=== PATIENT | female | born 1995 | race Caucasian/White ===

== ENCOUNTER 2019-02-22 19:09 | Emergency (ER) | payer SELFPAY ==
[2019-02-22] VITALS (9 sets, daily range): BP systolic 96–105; BP diastolic 46–60; PULSE 80–92; RESP 16–24; TEMP 36.9; O2SAT 92–100
--- NOTE | 2019-02-22 19:14 | ED.GENADUL_ITS ---
Discharge Plan Disposition Patient Disposition: HOME Condition: Improving Discharge Details Chief Complaint: AMS/LOC Clinical Impression: Opiate overdose Primary Care Provider: Sharyn Gunderson V ED Provider: Edgar Lim Home Meds and New Rx's Prescriptions: No Action No Known Home Meds RF: 0 Discharge Instructions Additional Instructions: Please avoid illegal narcotics. You are medically stable for discharge from the emergency department. Rest this evening, frequent sips of fluids to maintain hydration Discharge Data Discharge Date/Time-TO BE ENTERED AT DEPARTURE: 02/22/19 21:36 Medical Decision Making <Robles Lauren MD - Last Filed: 02/23/19 09:27> 23-year-old female status post opiate overdose treated with naloxone prehospital he no acute distress in the emergency department. Will monitor for re-sedation patient refusing recovery services at this time. 8:10 PM patient without respiratory depression but decreased responsiveness responsive to mild noxious stimuli primary secondary survey repeated no evidence of trauma. Will check blood glucose empiric naloxone and continue to monitor in the emergency department. Plan discussed with oncoming attending for signout. <Edgar Lim MD - Last Filed: 02/22/19 21:39> Patient observed to further approximately hour and a half with improvement and became clinically more sober and requesting discharge. Admonished not to abuse illegal drugs. She is stable and improved, appropriate for discharge. At the time of discharge, patient refused her discharge paperwork HPI <Robles Lauren MD - Last Filed: 02/23/19 09:27> 23-year-old female brought in by EMS status post suspected heroin overdose patient admits to use to smoking heroin this evening then walking out of a [employer] potty collapsed at a public event nearby. Responding police administered 3 4 mg intranasal naloxone doses patient awoke approximately a minute later. In the emergency department patient has no complaints no respiratory distress no shortness of breath no chest pain no nausea vomiting diarrhea.patient states that she relapsed she last used any opiates 3 months ago but is not interested in recovery resources at this time. General Date/Time Provider Initiated Documentation: 02/22/19 19:11 . Related Data Home Medications Medication Instructions Recorded Confirmed Unknown [No Known Home Meds] 02/17/18 02/17/18 Allergies Allergy/AdvReac Type Severity Reaction Status Date / Time amoxicillin Allergy Intermediate Skin Rash Verified 02/17/18 01:36 Penicillins Allergy Intermediate Skin Rash Verified 02/17/18 01:36 General Stated Complaint: AMS/LOC JORDAN: 2 <Edgar Lim MD - Last Filed: 02/22/19 21:39> 23-year-old female brought in by EMS status post suspected heroin overdose patient admits to use to smoking heroin this evening then walking out of a [employer] potty collapsed at a public event nearby. Responding police administered 3 4 mg intranasal naloxone doses patient awoke approximately a minute later. In the emergency department patient has no complaints no respiratory distress no shortness of breath no chest pain no nausea vomiting diarrhea.patient states that she relapsed she last used any opiates 3 months ago but is not interested in recovery resources at this time. Review of Systems <Robles Lauren MD - Last Filed: 02/23/19 09:27> Review of Systems All systems reviewed & are unremarkable except as noted in HPI and below PFSH <Robles Lauren MD - Last Filed: 02/23/19 09:27> Social History Smoking/Tobacco Use Status: Current every day Tobacco Type: cigarettes Alcohol Intake: current Drug use: Binges Substance use type: heroin Details: Patient states I relapsed. Do you feel safe in your relationship?: No Exam <Robles Lauren MD - Last Filed: 02/23/19 09:27> Narrative Exam Narrative: Pulse oximetry reviewed by me and is normal [] Constitutional: Pt is in no acute distress. he is well appearing. he oriented to person, place, and time. Eyes: conjunctivae are normal. Pupils are equal, round, and reactive to light. No scleral icterus. extraocular muscles are intact Ears/Nose/Mouth/Throat: mucus membranes are moist. Musculoskeletal: neck is supple. normal range of motion in all extremities. Cardiovascular: Normal rate and rhythm. No lower extremity edema [RRR] Respiratory: effort is normal . pt exhibits no stridor or respiratory distress. [L CTA] GastrointestinaI: abdomen soft, +BS, nontender, -rebound, -guarding. Neurological: alert and oriented to person, place, and time. he has normal strength, no tremor. Skin: Skin is warm and dry. he is not diaphoretic. Distal perfusion in tact, wa rm extremities, cap refill ? 2 seconds. Hem/Lymph/Imm: No cervical LAD, no goiter, no conjunctival pallor Psych: normal mood and affect. behavior is normal Triage and nurse notes reviewed.[] Course <Robles Lauren MD - Last Filed: 02/23/19 09:27> Vital Signs Temperature 36.9 C 02/22/19 19:04 Pulse 91 H 02/22/19 19:04 Respiratory Rate 18 02/22/19 19:04 Blood Pressure 103/60 02/22/19 19:04 Pulse Oximetry 97 02/22/19 19:04 Temperature 36.9 C 02/22/19 19:04 Temperature Source Skin 02/22/19 19:04 Pulse 91 H 02/22/19 19:04 Respiratory Rate 18 02/22/19 19:04 Respiratory Effort 02/22/19 19:09 Blood Pressure 103/60 02/22/19 19:04 Pulse Oximetry 97 02/22/19 19:04 Pain Level 0 02/22/19 19:04 Sign Out <Robles Lauren MD - Last Filed: 02/23/19 09:27> Sign Out Data: Sign Out Comment: Patient post overdose opiates re-sedated no apnea signout monitor Last updated by Robles Lauren MD at 02/22/19 20:11
== END 2019-02-22 21:36 | disposition home or self-care (01) ==
PROVIDERS: Emergency Provider Emergency Medicine; PCP Family Medicine
DX: T40.601A Poisoning by unspecified narcotics, accidental (unintentional), initial encounter (principal); R40.20 Unspecified coma
CPT/HCPCS: 36416; 82962; 96372; 99284; 99283; J2310

== ENCOUNTER 2019-08-31 15:22 | Emergency (ER) | payer MEDICAID, SELFPAY ==
[2019-08-31 15:25] VITALS: BP 112/66; PULSE 89; RESP 16; TEMP 36.4; O2SAT 95
--- NOTE | 2019-08-31 15:31 | ED.GENADUL_ITS ---
Discharge Plan Disposition Patient Disposition: HOME Condition: Stable Discharge Details Chief Complaint: RespSymp Clinical Impression: Hand, foot and mouth disease Primary Care Provider: Sharyn Gunderson V ED Provider: Gita Ortega Home Meds and New Rx's Prescriptions: No Action No Known Home Meds RF: 0 Discharge Instructions Instructions: Hand, Foot, and Mouth Disease (ED) Additional Instructions: Alternate Tylenol and Motrin as needed and directed for pain. Use the Magic mouthwash 10 mL by mouth every 6 hours as needed. You can swish and spit and occasionally swallow a small amount. Apply warm compresses to the lesions on your face. You can also apply topical antibiotic ointment as needed. Avoid heavy lotions or drying soaps. Follow a diet of cool soft liquids and foods over the next few days while having mouth pain. Follow-up with your primary care doctor within the next week for reevaluation. Return to the emergency department if you develop any worsening or concerning symptoms. Stand Alone Forms: Work Release Discharge Data Discharge Physician: Gita Ortega Medical Decision Making 23-year-old female presents with painful lesions to her mouth, palms of hands and soles of feet for the past few days. Patient denies any known sick contacts. She states she is concerned about rnls-bqjc-eds-mouth disease. Faintly erythematous tender 1 to 2 mm hyperpigmented macules and papules noted to buccal mucosa and inside lips. Tongue is tender to touch with scattered indented scaly lesions, not obviously consistent with ulcers or papules. No evidence of thrush. There are faintly erythematous 1 mm papules noted to palms and soles. No evidence of abscesses. Lungs clear. Patient appears nontoxic. Presentation could be consistent with mmzl-qbyh-pfj-mouth disease. Patient was advised to apply warm compresses to chin. She was given Magic mouthwash and admitted to significant relief of pain. She was given Tylenol for pain and was advised to alternate Tylenol Motrin as needed and directed. She was given a work note for today. She was advised to follow-up with her primary care doctor for reevaluation and to return here anytime if worse. HPI General Mode of arrival: ambulatory . Date/Time Provider Initiated Documentation: 08/31/19 15:22 . Limitations to Documentation: no limitations . Information obtained by: patient . HPI Narrative: Patient is a 23-year-old female w/ a h/o anxiety, depression, and narcotic drug abuse who presents to the ED w/ a c/o painful mouth, face, hand, and foot lesions for the past few days. Pt has been having difficulty eating due to pain. She denies any known sick contacts. She denies any new medications such as antibiotics, NSAIDs. She denies any fever, headache and cough, chest pain, shortness of breath or vomiting. Related Data Home Medications Medication Instructions Recorded Confirmed Unknown [No Known Home Meds] 02/17/18 05/21/19 Allergies Allergy/AdvReac Type Severity Reaction Status Date / Time amoxicillin Allergy Intermediate Skin Rash Verified 08/31/19 15:32 Penicillins Allergy Intermediate Skin Rash Verified 08/31/19 15:32 General Stated Complaint: RespSymp JORDAN: 4 Review of Systems All systems reviewed & are unremarkable except as noted in HPI and below Constitutional Constitutional: Reports as per HPI, Denies chills and Denies fever(s) Eyes Eyes: Denies blurry vision ENT Ears, Nose, Mouth, and Throat: Denies dizziness, Reports mouth lesions, Reports mouth pain, Denies sore throat and Denies throat swelling Cardiovascular Cardiovascular: Denies chest pain and Denies dyspnea Respiratory Respiratory: Denies cough and Denies dyspnea Gastrointestinal Gastrointestinal: Denies abdominal pain, Denies diarrhea and Denies vomiting Genitourinary Genitourinary: Denies hematuria and Denies dysuria Musculoskeletal Musculoskeletal: Denies back pain and Denies numbness Integumentary/Breasts Skin/Breast: Reports lesions and Reports rash Neurologic Neurologic: Denies dizziness, Denies focal weakness and Denies numbness Allergic/Immunologic Allergic/Immunologic: Denies throat swelling [facility] Medical History History of intravenous drug use in remission (Acute) Surgical History Appendectomy section (03/28/15) PCD for breech presentation. Apolonia Rodriguez 5lb7oz. formerly [facility] Social History Smoking/Tobacco Use Status: Current every day Tobacco Type: cigarettes Alcohol Intake: current Drug use: Binges Substance use type: heroin Details: Patient states I relapsed. Do you feel safe at home: Yes Do you feel safe in your relationship?: No History History 1 Para 1 Hx # Term Pregnancies Multiple births Hx # Pregnancies Ectopic pregnancies AB induced Hx Number of Living Children AB spontaneous Exam Const General: cooperative, healthy appearing and no acute distress HENMT Head: normal to inspection Ears: hearing grossly normal bilaterally, external ears normal and TM's normal bilaterally General nose exam: external nose normal Face and sinus: normal facial exam Mouth: moist mucous membranes and oral mucosa abnormal erythematous, edematous and ulceration (tender ) of the right buccal mucosa and of the sublingual area; no hematomas, no palatal petechiae, no white patches and no vesicles Throat: posterior oropharynx normal Eyes General: appearance normal, both eyes and all related structures Neck Neck: normal visual inspection, no lymphadenopathy, no meningeal signs, trachea midline, supple and No submandibular swelling Resp Effort & Inspection: normal respiratory effort and able to speak in complete sentences Auscultation: clear to auscultation bilaterally Cardio Rate: regular rate Rhythm: regular rhythm Skin Other: Minimal tiny pinpoint hyperpigmented papules palms of hands bilaterally and soles of feet. Mild bilateral palmar and plantar edema. No palmar or plantar erythema, ecchymoses. No vesicles or ulcers to palms or soles. There is a 2x4mm ulceration noted to dorsal aspect of distal phalange of R 4th digit. No signs of cellulitis. Distal pulses intact. No deformities noted. Multiple 2 mm papules, crusts and Coumadin was noted around mouth and chin. No obvious abscesses noted. No active bleeding or discharge. Neuro General: alert, awake and oriented x3 Motor: muscle tone normal throughout Extrem General: normal to inspection and full ROM Psych Appearance: grossly normal Affect: normal affect Course Vital Signs Vital signs: Vital Signs Temperature 97.5 F L 08/31/19 15:25 Pulse 89 08/31/19 15:25 Respiratory Rate 16 08/31/19 15:25 Blood Pressure 112/66 08/31/19 15:25 Pulse Oximetry 95 08/31/19 15:25 Temperature 97.5 F L 08/31/19 15:25 Temperature Source Temporal Artery Scan 08/31/19 15:25 Pulse 89 08/31/19 15:25 Respiratory Rate 16 08/31/19 15:25 Blood Pressure 112/66 08/31/19 15:25 Pulse Oximetry 95 08/31/19 15:25 Oxygen Delivery Method Room Air 08/31/19 15:25 Oxygen Flow Rate 0 08/31/19 15:25
[2019-08-31] MEDS: Acetaminophen 325 MG TAB 650 MG PO (15:52)
[2019-08-31] MEDS: Magic Mouthwash 119 ML BTL 10 ML PO (15:54)
== END 2019-08-31 16:00 | disposition home or self-care (01) ==
PROVIDERS: Emergency Provider Physician Assistant; PCP Family Medicine
DX: B08.4 Enteroviral vesicular stomatitis with exanthem (principal)
CPT/HCPCS: 99283

== ENCOUNTER 2019-12-25 08:23 | Outpatient (REF) | payer MEDICAID, SELFPAY ==
[2019-12-25 10:55] LABS: *AMPHETAMINES SCREEN URINE Negative (Negative); *BARBITURATES SCREEN URINE Negative (Negative); *BENZODIAZEPINES SCREEN URINE Negative (Negative); Cannabinoids THC Negative (Negative); Cocaine Screen,Urine Negative (Negative); METHADONE URINE SCREEN Negative (Negative); OPIATES URINE SCREEN POSITIVE (Negative)
[2019-12-25 10:56] LABS: Tricyclic Antidepressants Negative (Negative)
[2019-12-30 08:46] LABS: Buprenorphine 13.5 ng/mL; Norbuprenorphine 109.7 ng/mL
== END 2019-12-25 08:43 ==
LOC: LBN 08:23
PROVIDERS: PCP Family Medicine; Visit Provider Advanced Practice Midwife
DX: Z34.91 Encounter for supervision of normal pregnancy, unspecified, first trimester (principal)
CPT/HCPCS: 80307; 87086

== ENCOUNTER 2020-01-05 20:56 | Emergency (ER) | payer MEDICAID, SELFPAY ==
[2020-01-05 21:01] VITALS: BP 130/77; PULSE 115; RESP 18; TEMP 36.7; O2SAT 97
--- NOTE | 2020-01-05 21:07 | ED.GENADUL_ITS ---
Discharge Plan Disposition Patient Disposition: HOME Condition: Good Discharge Details Chief Complaint: Sorethroat Clinical Impression: Strep pharyngitis Primary Care Provider: Sharyn Gunderson V ED Provider: Kathy Blackmon Home Meds and New Rx's Prescriptions: New azithromycin 250 mg tablet 250 mg PO DAILY 4 Days Qty: 4 RF: 0 Continued prenat.vits,jonathan,[id number] Tablet 1 tab PO DAILY Qty: 30 RF: 12 buprenorphine-naloxone [Suboxone] 8-2 mg Film RF: 0 Discharge Instructions Instructions: Strep Throat (ED) Additional Instructions: Encourage water intake. And use Tylenol as needed for discomfort. Please take the azithromycin as prescribed. Your next dose is not due till tomorrow night. Even if symptoms improve, please take the entire course. Please contact [facility] to discuss your current illness and treatment. If you develop inability stay hydrated, difficulty breathing, shortness of breath, increased swelling or other new/worsening symptom please seek care urgently once again. Please change your toothbrush after 48 hours on antibiotics. Referrals: Sharyn Gunderson MD [Primary Care Provider] - Medical Decision Making Patient is a pleasant 24-year-old female presenting today with chief complaint of sore throat. She reports that her significant other is currently being treated for streptococcal pharyngitis. She reports that this morning she woke with a sore throat and has noted progressively worsening Course the day. She denies any fevers or chills. Has been able to hydrate well. Patient is currently 16 weeks gestation with second . She is being followed by [facility]. On exam, patient is resting comfortably. She is in no acute distress. She has mild erythema and swelling on bilateral tonsils but no swelling under the tongue, uvular deviation, evidence of peritonsillar abscess. She has no palpable lymphadenopathy. Lungs are clear. She does appear well-hydrated. Rapid strep testing is positive. Plan to treat patient with azithromycin as she is allergic to penicillin. Encourage water intake. Advised Tylenol as needed for discomfort. She will contact [facility] to discuss follow-up appointment. She is given strict return precautions. All of her questions and concerns were addressed she is agreement this plan. First dosing of azithromycin was given here HPI General Mode of arrival: ambulatory . Date/Time Provider Initiated Documentation: 01/05/20 21:06 . Limitations to Documentation: no limitations . Information obtained by: patient and RN notes reviewed . History of Present Illness 24 year old F presents to the emergency department with the chief complaint of sore throat, described as moderate, with intensity rated at 4. Quality is described as burning, and is localized to the mouth. Patient reports no radiation. Patient started experiencing this hour(s) and it has been constant. No relieving factors improve symptom(s), No exacerbating factors reported . Patient notes no other symptoms.; denies cough, fever/chills, loss of appetite, nausea/vomiting, rash and shortness of breath. Patient did receive the following treatments prior to arrival, none Related Data Home Medications Medication Instructions Recorded Confirmed prenat.vits,jonathan,[id number] 1 tab PO DAILY #30 tab 12/24/19 01/05/20 azithromycin 250 mg PO DAILY 4 Days #4 tab 01/05/20 buprenorphine-naloxone [Suboxone] film 01/05/20 Previous Rx's Medication Instructions Recorded prenat.vits,jonathan,[id number] 1 tab PO DAILY #30 tab 12/24/19 azithromycin 250 mg PO DAILY 4 Days #4 tab 01/05/20 Allergies Allergy/AdvReac Type Severity Reaction Status Date / Time amoxicillin Allergy Intermediate Skin Rash Verified 01/05/20 21:07 Penicillins Allergy Intermediate Skin Rash Verified 01/05/20 21:07 General Stated Complaint: Sorethroat JORDAN: 4 Review of Systems Constitutional Constitutional: Reports as per HPI and Denies headache(s) Eyes Eyes: Reports as per HPI, Denies eye discharge and Denies irritation ENT Ears, Nose, Mouth, and Throat: Reports as per HPI and Denies headache(s) Cardiovascular Cardiovascular: Reports as per HPI, Denies chest pain and Denies dyspnea Respiratory Respiratory: Reports as per HPI and Denies dyspnea Gastrointestinal Gastrointestinal: Reports as per HPI, Denies abdominal pain, Denies change in bowel habits, Denies nausea and Denies vomiting Integumentary/Breasts Skin/Breast: Reports as per HPI and Denies rash Neurologic Neurologic: Reports as per HPI and Denies headache(s) [facility] Medical History History of intravenous drug use in remission (Resolved) Opiate dependence, continuous (Acute) Tobacco dependence (Acute) Surgical History Appendectomy section (03/28/15) PCD for breech presentation. Apolonia Freitas. 5lb7oz. [facility] Social History Smoking/Tobacco Use Status: Current every day Tobacco Type: cigarettes Smoking packs per day: 1 Smoking cigarettes per day: 20.0 Alcohol Intake: current Drug use: Binges Substance use type: heroin Do you feel safe at home: Yes History History 1 Para 1 Hx # Term Pregnancies Multiple births Hx # Pregnancies Ectopic pregnancies AB induced Hx Number of Living Children AB spontaneous Past Pregnancies Del. Date GA/Weeks # Outcome Route Wgt Sex Labor Lgth Anesthes ia Location Prov Complic 03/28/15 37 No Successful 2.[address] Alvarez Delivery Date: 03/28/15 [place], Breech with SROM at 37 weeks, S[place], [place] Exam Const General: cooperative, healthy appearing, comfortable, no acute distress, well developed and well groomed Nutritional Appearance: average body habitus and well nourished Orientation: alert and awake HENMT Head: normal to inspection, normocephalic and atraumatic Ears: hearing grossly normal bilaterally, external ears normal and TM's normal bilaterally General nose exam: external nose normal and nares normal Face and sinus: normal facial exam, sinuses nontender and face symmetric Mouth: oral mucosae normal, lip normal, tongue normal, oropharynx normal, moist mucous membranes, no audible dysphonia, no trismus and No restricted motion Teeth and gingiva: dentition normal Throat: tonsils normal, uvula midline, abnormal tonsil bilaterally erythema and hypertrophy (mild); no exudates and no peritonsillar masses Eyes General: appearance normal, both eyes and all related structures Neck Neck: normal visual inspection, full ROM, no lymphadenopathy and no meningeal signs Resp Effort & Inspection: normal respiratory effort, able to speak in complete sentences and no respiratory distress Auscultation: clear to auscultation bilaterally, no rales, no rhonchi and no wheezes Cardio Rate: regular rate Rhythm: regular rhythm Heart Sounds: S1 normal and S2 normal Skin General skin exam: no rashes or lesions noted Neuro General: patient alert and patient awake Cognition: normal cognition Speech: speech normal Gait: normal gait Psych Appearance: grossly normal and well kempt Mental Status: mental status grossly normal Speech and Movement: speech and movement normal Course Vital Signs Vital signs: Vital Signs Temperature 36.7 C 01/05/20 21:01 Pulse 115 H 01/05/20 21:01 Respiratory Rate 18 01/05/20 21:01 Blood Pressure 130/77 01/05/20 21:01 Pulse Oximetry 97 01/05/20 21:01 Temperature 36.7 C 01/05/20 21:01 Temperature Source Skin 01/05/20 21:01 Pulse 115 H 01/05/20 21:01 Respiratory Rate 18 01/05/20 21:01 Blood Pressure 130/77 01/05/20 21:01 Blood Pressure Position Sitting 01/05/20 21:01 Pulse Oximetry 97 01/05/20 21:01 Oxygen Delivery Method Room Air 01/05/20 21:01 Oxygen Flow Rate 0 01/05/20 21:01 Pain Level 5 01/05/20 21:01
[2020-01-05] MEDS: Azithromycin 250 MG TAB 500 MG PO (21:45)
== END 2020-01-05 21:45 | disposition home or self-care (01) ==
PROVIDERS: Emergency Provider Physician Assistant; PCP Family Medicine
DX: J02.0 Streptococcal pharyngitis (principal); Z3A.16 16 weeks gestation of pregnancy; O99.332 Smoking (tobacco) complicating pregnancy, second trimester; F17.210 Nicotine dependence, cigarettes, uncomplicated
CPT/HCPCS: 99283

== ENCOUNTER 2020-01-20 01:17 | Outpatient (CLI) | payer MEDICAID, SELFPAY ==
--- NOTE | 2020-01-20 | DI.US_ITS ---
EXAM: US OB 2-3 TRIMESTER CLINICAL HISTORY: ,Z34.90 TECHNIQUE: Ultrasound performed using standard protocol. COMPARISON: [facility] OB ULTRASOUND from 03/26/2015 FINDINGS: Ob ultrasound was performed utilizing 2nd trimester protocol. There is a single fetus with bio metry consistent with gestational age of 19 weeks 4 days and an EDC of 06/11/2020. Placenta is pratibha l with no evidence of placenta previa. There is a normal quantity of amniotic fluid. anomaly screen is within normal limits as per the attached checklist. heart rate is 160 BPM. IMPRESSION: DATA REPOSITORY:
[2020-01-20 16:59] LABS: *AMPHETAMINES SCREEN URINE Negative (Negative); *BARBITURATES SCREEN URINE Negative (Negative); *BENZODIAZEPINES SCREEN URINE Negative (Negative); Cannabinoids THC Negative (Negative); Cocaine Screen,Urine POSITIVE (Negative); METHADONE URINE SCREEN Negative (Negative); OPIATES URINE SCREEN Negative (Negative)
[2020-01-20 17:05] LABS: Tricyclic Antidepressants Negative (Negative)
== END 2020-01-20 01:37 ==
PROVIDERS: PCP Family Medicine; Visit Provider Advanced Practice Midwife
DX: Z34.92 Encounter for supervision of normal pregnancy, unspecified, second trimester (principal); Z3A.19 19 weeks gestation of pregnancy
CPT/HCPCS: 80307; 76805

== ENCOUNTER 2020-01-21 01:09 | Outpatient (CLI) | payer MEDICAID, SELFPAY ==
[2020-01-21 15:18] LABS: Abs Immature Grans 0.02 k/cumm (0.0-0.09); Absolute Basophil Count 0.02 k/cumm (0.0-0.2); Absolute Eosinophil Count 0.08 k/cumm (0.0-0.7); Absolute Lymphocyte Count 1.39 k/cumm (1.2-3.4); Basophils % 0.2; Eosinophils % 0.7; HCT 29.2 % (36.0-46.0); HGB 9.6 g/dL (12.0-15.5); Immature Grans % 0.2 %; Lymphocytes % 12.9; Mean Corp. HGB Concentration 32.9 g/dL (32.0-36.0); Mean Corpuscular Hemoglobin 19.7 pg (27.0-33.0); Mean Platelet Volume 10.4 fL (8.0-11.0); Monocytes % 7.4; Neutrophils % 78.6; Platelet Count 342 x1000/uL (130-400); RBC 4.87 m/cumm (4.00-5.20); RBC Distribution Width 15.4 % (11.7-14.6); White Blood Cell Count 10.81 k/cumm (4.4-10.8)
[2020-01-21 15:56] LABS: Hypochromasia 1+; Microcytosis 2+
[2020-01-22 10:28] LABS: HIV-1/2 Ag & Ab Screen Negative (Negative)
[2020-01-22 10:29] LABS: Hepatitis C Ab w Rflx HCV PCR Reactive (Negative)
[2020-01-22 13:26] LABS: Chlamydia Result Negative (Negative); GC Result Negative (Negative)
[2020-01-22 14:09] LABS: Rubella IgG Ab (UVM) Positive (See Note); Varicella IgG Antibody Positive (See Note)
[2020-01-22 14:53] LABS: Syphilis Total Ab w/Reflex Nonreactive (Nonreactive)
[2020-01-22 16:26] LABS: Hepatitis B Surface Ag Positive (Negative)
[2020-01-26 10:58] LABS: Buprenorphine 90.5 ng/mL; Norbuprenorphine 340.5 ng/mL
[2020-01-26 15:51] LABS: HCV RNA Detection Quantitative See Comments IU/mL (Undetected)
[2020-01-27 17:43] LABS: Result Summary NEGATIVE; Specimen WB Whole Blood
== END 2020-01-21 01:29 ==
PROVIDERS: Advanced Practice Midwife; PCP Family Medicine; Visit Provider Advanced Practice Midwife
DX: Z34.91 Encounter for supervision of normal pregnancy, unspecified, first trimester (principal); Z11.59 Encounter for screening for other viral diseases; Z11.4 Encounter for screening for human immunodeficiency virus [HIV]; Z01.84 Encounter for antibody response examination; Z36.89 Encounter for other specified antenatal screening
CPT/HCPCS: 36415; 80307; 86787; 86803; 86850; 86900; 86901; 87340; 87389; 87491; 87591; 81220; 85025; 86762; 86780; 87522

== ENCOUNTER 2020-02-03 14:17 | Outpatient (REF) | payer MEDICAID, SELFPAY ==
[2020-02-03 15:25] LABS: HCT 30.5 % (36.0-46.0); HGB 9.8 g/dL (12.0-15.5); Mean Corp. HGB Concentration 32.1 g/dL (32.0-36.0); Mean Corpuscular Hemoglobin 19.4 pg (27.0-33.0); Mean Corpuscular Volume 60.5 fL (80-95); Mean Platelet Volume 10.6 fL (8.0-11.0); Platelet Count 383 x1000/uL (130-400); RBC 5.04 m/cumm (4.00-5.20); RBC Distribution Width 16.1 % (11.7-14.6); Reticulocyte 2.3 % (0.5-2.4); White Blood Cell Count 8.76 k/cumm (4.4-10.8)
[2020-02-03 15:33] LABS: Total Iron Binding Capacity 539 ug/dL (250-450)
[2020-02-03 15:38] LABS: ALT 65 U/L (14-59); AST 34 U/L (15-37); Albumin 3.4 g/dL (3.4-5.0); Alkaline Phosphatase 53 U/L (46-116); Bilirubin, Direct 0.12 mg/dL (0.00-0.20); Bilirubin, Total 0.4 mg/dL (0.2-1.0); Total Protein 6.9 g/dL (6.4-8.2)
[2020-02-03 15:47] LABS: Ferritin 29 ng/mL (8-252)
[2020-02-04 14:58] LABS: Transferrin 387 mg/dL (201-352)
[2020-02-04 15:38] LABS: HBc IgM Ab, S Negative (Negative); Hepatitis Be Antigen Negative (Negative)
[2020-02-04 15:53] LABS: HBe Antibody Negative (Negative)
[2020-02-05 22:47] LABS: GA used in risk estimate Scan estimate; IVF Pregnancy No; Initial or repeat testing Initial testing; Insulin dependent diabetes No; Maternal Weight 119 lbs; Maternal Weight 54 kg; Number of Fetuses 1; Prev Pregnancy w/NTD No; RECOMMENDED FOLLOW UP None.; Results Summary Normal risk
[2020-02-06 21:41] LABS: HBV DNA Detect/Quant, PCR Undetected IU/mL (Undetected)
== END 2020-02-03 14:37 ==
LOC: LBN 14:17
PROVIDERS: Obstetrics & Gynecology Gynecology; PCP Family Medicine; Visit Provider Advanced Practice Midwife
DX: Z34.91 Encounter for supervision of normal pregnancy, unspecified, first trimester (principal); Z36.89 Encounter for other specified antenatal screening; O98.411 Viral hepatitis complicating pregnancy, first trimester; B19.10 Unspecified viral hepatitis B without hepatic coma; D64.9 Anemia, unspecified
CPT/HCPCS: 80076; 85027; 87517; 82105; 82728; 83550; 84466; 85045; 86705; 86707; 87350

== ENCOUNTER 2020-02-17 17:39 | Emergency (ER) | payer MEDICAID, SELFPAY ==
[2020-02-17] VITALS (16 sets, daily range): BP systolic 95–109; BP diastolic 53–60; PULSE 73–89; RESP 8–20; TEMP 36.4; O2SAT 92–100
[2020-02-17 18:11] LABS: Abs Immature Grans 0.04 k/cumm (0.0-0.09); Absolute Eosinophil Count 0.05 k/cumm (0.0-0.7); Absolute Lymphocyte Count 1.27 k/cumm (1.2-3.4); Absolute Monocyte Count 0.68 k/cumm (0.11-0.7); Absolute Neutrophil Count 7.73 k/cumm (1.2-6.7); Eosinophils % 0.5; HGB 9.4 g/dL (12.0-15.5); Immature Grans % 0.4 %; Mean Corp. HGB Concentration 32.4 g/dL (32.0-36.0); Mean Corpuscular Hemoglobin 19.8 pg (27.0-33.0); Mean Corpuscular Volume 61.1 fL (80-95); Mean Platelet Volume 9.7 fL (8.0-11.0); Neutrophils % 79.1; Platelet Count 370 x1000/uL (130-400); RBC 4.75 m/cumm (4.00-5.20); RBC Distribution Width 15.7 % (11.7-14.6); White Blood Cell Count 9.77 k/cumm (4.4-10.8)
[2020-02-17] MEDS: Naloxone 0.4 MG/ML VIAL IVP (18:14)
[2020-02-17] MEDS: Normal Saline 1,000 ML 1000 ML IV (18:14)
[2020-02-17 18:24] LABS: ALT 94 U/L (14-59); AST 66 U/L (15-37); Albumin 3.2 g/dL (3.4-5.0); Alkaline Phosphatase 73 U/L (46-116); Anion Gap 10.2 mmol/L (3-11); BUN 7 mg/dL (7-18); Bilirubin, Total 0.6 mg/dL (0.2-1.0); CO2 27.8 mmol/L (21.0-32.0); CREATININE 0.59 mg/dL (0.55-1.02); Calcium 8.5 mg/dL (8.5-10.1); Chloride 101 mmol/L (98-107); Glucose 88 mg/dL (74-106); Potassium 3.2 mmol/L (3.5-5.1); Sodium 139 mmol/L (136-145); Total Protein 7.2 g/dL (6.4-8.2)
[2020-02-17 18:29] LABS: Diff Comment Diff Reviewed; Hypochromasia 1+
[2020-02-17 18:30] LABS: Basophilic Stippling 1+; Microcytosis 2+; Polychromasia Present
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
== END 2020-02-17 19:55 | disposition home or self-care (01) ==
PROVIDERS: Emergency Provider Physician Assistant; PCP Family Medicine
DX: T40.1X1A Poisoning by heroin, accidental (unintentional), initial encounter (principal); R40.0 Somnolence; Z3A.24 24 weeks gestation of pregnancy; O99.322 Drug use complicating pregnancy, second trimester; F11.220 Opioid dependence with intoxication, uncomplicated
CPT/HCPCS: 36415; 80053; 96361; 96374; 99284; 85025; J2310

== ENCOUNTER 2020-02-24 16:18 | Outpatient (REF) | payer MEDICAID, SELFPAY ==
[2020-02-24 19:48] LABS: *AMPHETAMINES SCREEN URINE Negative (Negative); *BARBITURATES SCREEN URINE Negative (Negative); *BENZODIAZEPINES SCREEN URINE Negative (Negative); Cannabinoids THC Negative (Negative); Cocaine Screen,Urine POSITIVE (Negative); METHADONE URINE SCREEN Negative (Negative); OPIATES URINE SCREEN Negative (Negative)
[2020-02-24 19:49] LABS: Tricyclic Antidepressants Negative (Negative)
[2020-03-01 02:41] LABS: Buprenorphine 292.5 ng/mL; Norbuprenorphine 716.9 ng/mL
== END 2020-02-24 16:38 ==
LOC: LBN 16:18
PROVIDERS: Advanced Practice Midwife; PCP Family Medicine; Visit Provider Advanced Practice Midwife
DX: Z34.92 Encounter for supervision of normal pregnancy, unspecified, second trimester (principal)
CPT/HCPCS: 80307

== ENCOUNTER 2020-03-09 01:16 | Outpatient (RCR) | payer MEDICAID, SELFPAY ==
[2020-03-02] MEDS: IRON SUCROSE COMPLEX 200 MG in Normal Saline 100 ML 440 MG IVPB (09:35)
[2020-03-02 09:36] LABS: HCT 29.4 % (36.0-46.0); HGB 9.5 g/dL (12.0-15.5)
[2020-03-02] MEDS: Normal Saline Flush 10 ML SYR IVP (09:36)
== END 2020-03-14 23:59 | disposition home or self-care (01) ==
LOC: INF 01:16
PROVIDERS: PCP Family Medicine; Visit Provider Advanced Practice Midwife
DX: D50.9 Iron deficiency anemia, unspecified (principal)
CPT/HCPCS: 36415; 96365; 85014; 85018; J1756

== ENCOUNTER 2020-03-16 16:34 | Outpatient (REF) | payer MEDICAID, SELFPAY ==
[2020-03-16 17:11] LABS: *AMPHETAMINES SCREEN URINE Negative (Negative); *BARBITURATES SCREEN URINE Negative (Negative); *BENZODIAZEPINES SCREEN URINE Negative (Negative); Cannabinoids THC Negative (Negative); Cocaine Screen,Urine POSITIVE (Negative); METHADONE URINE SCREEN Negative (Negative); OPIATES URINE SCREEN POSITIVE (Negative)
[2020-03-16 17:13] LABS: Tricyclic Antidepressants Negative (Negative)
[2020-03-23 13:11] LABS: Norbuprenorphine 591.6 ng/mL
== END 2020-03-16 16:54 ==
LOC: LBN 16:34
PROVIDERS: PCP Family Medicine; Visit Provider Advanced Practice Midwife
DX: Z34.92 Encounter for supervision of normal pregnancy, unspecified, second trimester (principal)
CPT/HCPCS: 80307

== ENCOUNTER 2020-03-26 19:08 | Outpatient (REF) | payer MEDICAID, SELFPAY ==
[2020-03-27 10:57] LABS: *AMPHETAMINES SCREEN URINE Negative (Negative); *BARBITURATES SCREEN URINE Negative (Negative); *BENZODIAZEPINES SCREEN URINE Negative (Negative); Cannabinoids THC Negative (Negative); Cocaine Screen,Urine Negative (Negative); METHADONE URINE SCREEN Negative (Negative); OPIATES URINE SCREEN Negative (Negative)
[2020-03-27 10:58] LABS: Tricyclic Antidepressants Negative (Negative)
[2020-04-03 06:39] LABS: Buprenorphine 246.9 ng/mL; Norbuprenorphine 1319.6 ng/mL
== END 2020-03-26 19:28 ==
LOC: LBN 19:08
PROVIDERS: PCP Family Medicine; Visit Provider Advanced Practice Midwife
DX: Z34.92 Encounter for supervision of normal pregnancy, unspecified, second trimester (principal)
CPT/HCPCS: 80307

== ENCOUNTER 2020-04-02 15:09 | Outpatient (REF) | payer MEDICAID, SELFPAY ==
[2020-04-02 19:30] LABS: *AMPHETAMINES SCREEN URINE Negative (Negative); *BARBITURATES SCREEN URINE Negative (Negative); *BENZODIAZEPINES SCREEN URINE Negative (Negative); Cannabinoids THC Negative (Negative); Cocaine Screen,Urine Negative (Negative); METHADONE URINE SCREEN Negative (Negative); OPIATES URINE SCREEN Negative (Negative)
[2020-04-02 19:31] LABS: Tricyclic Antidepressants Negative (Negative)
[2020-04-09 12:57] LABS: Buprenorphine 257.8 ng/mL
== END 2020-04-02 15:29 ==
LOC: LBN 15:09
PROVIDERS: PCP Family Medicine; Visit Provider Advanced Practice Midwife
DX: O99.323 Drug use complicating pregnancy, third trimester (principal); F11.20 Opioid dependence, uncomplicated
CPT/HCPCS: 80307

== ENCOUNTER 2020-04-03 02:50 | Emergency (ER) | payer MEDICAID, SELFPAY ==
[2020-04-03 02:53] VITALS: BP 98/56; PULSE 88; RESP 14; TEMP 36.7; O2SAT 98
[2020-04-03] MEDS: Lidocaine 2% Viscous 15 ML CUP (02:58)
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
== END 2020-04-03 03:10 | disposition home or self-care (01) ==
LOC: ER 03:13
PROVIDERS: Emergency Provider Student in an Organized Health Care Education/Training Program; PCP Family Medicine
DX: O22.43 Hemorrhoids in pregnancy, third trimester (principal); Z3A.29 29 weeks gestation of pregnancy; O99.323 Drug use complicating pregnancy, third trimester; F17.210 Nicotine dependence, cigarettes, uncomplicated; F11.20 Opioid dependence, uncomplicated
CPT/HCPCS: 99283

== ENCOUNTER 2020-04-08 02:29 | Outpatient (CLI) | payer MEDICAID, SELFPAY ==
[2020-04-08 10:57] LABS: Glucose 1 Hour 120 mg/dL
[2020-04-08 13:34] LABS: Glucose 3 Hour 85 mg/dL
== END 2020-04-08 02:49 ==
PROVIDERS: PCP Family Medicine; Visit Provider Advanced Practice Midwife
DX: O99.810 Abnormal glucose complicating pregnancy (principal); Z3A.30 30 weeks gestation of pregnancy
CPT/HCPCS: 36415; 82951

== ENCOUNTER 2020-04-09 03:23 | Outpatient (CLI) | payer MEDICAID, SELFPAY ==
--- NOTE | 2020-04-09 07:00 | DI.US_ITS ---
EXAM: US OB KIRSTIE WEIGHT CLINICAL HISTORY: growth surveillance,OPIOD DEPENDENCE,Z34.90,F11.20 TECHNIQUE: Ultrasound performed using standard protocol. COMPARISON: US US OB 2-3 TRIMESTER from 01/20/2020 FINDINGS: Ob ultrasound was performed utilizing 3rd trimester protocol. biometry is consistent with gest ational age 30 weeks 3 days and EDC of June 15, 2020. Placenta is posterior with no evidence of placenta previa. There is visually a normal quantity of amniotic fluid and the KIRSTIE is 19. The estimated weight is 1523 grams which is at the 15th percentile for predicted gestational ag e. heart rate is 132 BPM. IMPRESSION: DATA REPOSITORY:
== END 2020-04-09 03:43 ==
PROVIDERS: PCP Family Medicine; Visit Provider Advanced Practice Midwife
DX: O99.323 Drug use complicating pregnancy, third trimester (principal); F11.20 Opioid dependence, uncomplicated; Z3A.30 30 weeks gestation of pregnancy
CPT/HCPCS: 76816

== ENCOUNTER 2020-04-09 16:52 | Outpatient (REF) | payer MEDICAID, SELFPAY ==
[2020-04-09 17:37] LABS: *AMPHETAMINES SCREEN URINE Negative (Negative); *BARBITURATES SCREEN URINE Negative (Negative); *BENZODIAZEPINES SCREEN URINE Negative (Negative); Cannabinoids THC Negative (Negative); Cocaine Screen,Urine Negative (Negative); METHADONE URINE SCREEN Negative (Negative); OPIATES URINE SCREEN Negative (Negative)
[2020-04-09 17:38] LABS: Tricyclic Antidepressants Negative (Negative)
[2020-04-13 13:48] LABS: Buprenorphine 848.5 ng/mL; Norbuprenorphine 3621.5 ng/mL
== END 2020-04-09 17:12 ==
LOC: LBN 16:52
PROVIDERS: PCP Family Medicine; Visit Provider Advanced Practice Midwife
DX: O99.323 Drug use complicating pregnancy, third trimester (principal); F11.20 Opioid dependence, uncomplicated; Z3A.30 30 weeks gestation of pregnancy
CPT/HCPCS: 80307

== ENCOUNTER 2020-04-13 02:07 | Outpatient (RCR) | payer MEDICAID, SELFPAY ==
[2020-03-26 13:54] LABS: HCT 29.9 % (36.0-46.0); HGB 9.9 g/dL (12.0-15.5)
[2020-03-26] MEDS: IRON SUCROSE COMPLEX 200 MG in Normal Saline 100 ML 440 MG IVPB (14:03)
[2020-03-26] MEDS: Normal Saline Flush 10 ML SYR IVP (14:03)
[2020-04-02 13:32] LABS: HCT 28.9 % (36.0-46.0); HGB 9.4 g/dL (12.0-15.5); Mean Corp. HGB Concentration 32.5 g/dL (32.0-36.0); Mean Corpuscular Volume 61.4 fL (80-95); Mean Platelet Volume 10.1 fL (8.0-11.0); Platelet Count 300 x1000/uL (130-400); RBC 4.71 m/cumm (4.00-5.20); RBC Distribution Width 14.9 % (11.7-14.6); White Blood Cell Count 8.75 k/cumm (4.4-10.8)
[2020-04-02] MEDS: Normal Saline Flush 10 ML SYR IVP (13:36)
[2020-04-02] MEDS: IRON SUCROSE COMPLEX 200 MG in Normal Saline 100 ML 440 MG IVPB (13:36)
[2020-04-02 13:41] LABS: Glucose,1 Hr (Glucola) 162 mg/dL (80-140)
[2020-04-02 13:47] LABS: ALT 35 U/L (14-59); AST 25 U/L (15-37); Albumin 2.9 g/dL (3.4-5.0); Alkaline Phosphatase 81 U/L (46-116); Bilirubin, Direct 0.11 mg/dL (0.00-0.20); Bilirubin, Total 0.3 mg/dL (0.2-1.0); Total Protein 6.3 g/dL (6.4-8.2)
[2020-04-05 10:21] LABS: Hepatitis B Surface Ag Negative (Negative)
[2020-04-05 11:54] LABS: HBc IgM Ab, S Negative (Negative)
[2020-04-05 14:25] LABS: HCV RNA Qualitative Detected (Undetected)
[2020-04-13 14:00] LABS: HCT 29.5 % (36.0-46.0); HGB 9.5 g/dL (12.0-15.5)
[2020-04-13] MEDS: Normal Saline Flush 10 ML SYR IVP (14:28)
[2020-04-13] MEDS: IRON SUCROSE COMPLEX 200 MG in Normal Saline 100 ML 440 MG IVPB (14:28)
== END 2020-04-13 23:59 | disposition home or self-care (01) ==
LOC: INF 02:07
PROVIDERS: Advanced Practice Midwife; PCP Family Medicine; Visit Provider Advanced Practice Midwife
DX: O99.012 Anemia complicating pregnancy, second trimester (principal); D50.9 Iron deficiency anemia, unspecified
CPT/HCPCS: 36415; 80076; 82950; 85027; 87340; 87522; 96365; 85014; 85018; 86705; J1756

== ENCOUNTER 2020-04-30 14:48 | Outpatient (REF) | payer MEDICAID, SELFPAY ==
[2020-04-30 15:55] LABS: *AMPHETAMINES SCREEN URINE Negative (Negative); *BARBITURATES SCREEN URINE Negative (Negative); *BENZODIAZEPINES SCREEN URINE Negative (Negative); Cannabinoids THC Negative (Negative); Cocaine Screen,Urine Negative (Negative); METHADONE URINE SCREEN Negative (Negative); OPIATES URINE SCREEN Negative (Negative)
[2020-04-30 15:56] LABS: Tricyclic Antidepressants Negative (Negative)
[2020-05-04 14:39] LABS: Norbuprenorphine 364.6 ng/mL
== END 2020-04-30 15:08 ==
LOC: LBN 14:48
PROVIDERS: PCP Family Medicine; Visit Provider Obstetrics & Gynecology Gynecology
DX: Z34.90 Encounter for supervision of normal pregnancy, unspecified, unspecified trimester (principal)
CPT/HCPCS: 80307; 87081

== ENCOUNTER 2020-05-02 07:45 | Observation (INO) | payer MEDICAID, SELFPAY | END 2020-05-02 09:00 | disposition home or self-care (01) | PROVIDERS: Admitting Provider Obstetrics & Gynecology Gynecology; PCP Family Medicine; Visit Provider Obstetrics & Gynecology Gynecology | DX: O46.8X3 Other antepartum hemorrhage, third trimester (principal); Z3A.34 34 weeks gestation of pregnancy | CPT/HCPCS: G0378 ==

== ENCOUNTER 2020-05-07 03:36 | Outpatient (CLI) | payer MEDICAID, SELFPAY ==
--- NOTE | 2020-05-07 07:45 | DI.US_ITS ---
EXAM: US OB KIRSTIE WEIGHT CLINICAL HISTORY: monthly interval growth scans,SIZE,KIRSTIE,SMALL FOR DATES,?POSITION. TECHNIQUE: Transabdominal obstetrical ultrasound performed. COMPARISON: US US OB KIRSTIE WEIGHT from 04/09/2020 FINDINGS: Transabdominal obstetrical ultrasound performed. FINDINGS: Number of fetuses: One. position: Cephalic heart rate: 139 bpm. Placental location: Posterior. No evidence of previa. BIOMETRIC DATA: EFW: 2453 grms 33% Composite Age: 34 weeks 6 days EDC: 06/12/2020 Heart Rate: 139BPM Amniotic fluid index: 14.1 cm. Amount of fluid is within normal limits. IMPRESSION: 1. Single live intrauterine gestation as above. 2. Estimated gestational age is 34 weeks 6 days. DATA REPOSITORY:
== END 2020-05-07 03:56 ==
PROVIDERS: PCP Family Medicine; Visit Provider Advanced Practice Midwife
DX: O99.323 Drug use complicating pregnancy, third trimester (principal); Z3A.34 34 weeks gestation of pregnancy
CPT/HCPCS: 76816

== ENCOUNTER 2020-05-14 03:58 | Outpatient (RCR) | payer MEDICAID, SELFPAY ==
[2020-04-23] MEDS: Normal Saline Flush 10 ML SYR IVP ×2 (12:53→13:14)
[2020-04-23] MEDS: IRON SUCROSE COMPLEX 200 MG in Normal Saline 100 ML 440 MG IVPB (13:14)
[2020-04-30] MEDS: Normal Saline Flush 10 ML SYR IVP (13:30)
[2020-04-30] MEDS: IRON SUCROSE COMPLEX 200 MG in Normal Saline 100 ML 440 MG IVPB (13:30)
[2020-05-07] MEDS: IRON SUCROSE COMPLEX 200 MG in Normal Saline 100 ML 440 MG IVPB (12:50)
[2020-05-07] MEDS: Normal Saline Flush 10 ML SYR IVP (12:50)
[2020-05-07 17:50] LABS: *AMPHETAMINES SCREEN URINE Negative (Negative); *BARBITURATES SCREEN URINE Negative (Negative); *BENZODIAZEPINES SCREEN URINE Negative (Negative); Cannabinoids THC Negative (Negative); Cocaine Screen,Urine Negative (Negative); METHADONE URINE SCREEN Negative (Negative); OPIATES URINE SCREEN Negative (Negative)
[2020-05-07 17:52] LABS: Tricyclic Antidepressants Negative (Negative)
[2020-05-14] MEDS: IRON SUCROSE COMPLEX 200 MG in Normal Saline 100 ML IVPB (13:28)
[2020-05-14] MEDS: Normal Saline Flush 10 ML SYR IVP (13:30)
[2020-05-14 17:28] LABS: *AMPHETAMINES SCREEN URINE Negative (Negative); *BARBITURATES SCREEN URINE Negative (Negative); *BENZODIAZEPINES SCREEN URINE Negative (Negative); Cannabinoids THC Negative (Negative); Cocaine Screen,Urine Negative (Negative); METHADONE URINE SCREEN Negative (Negative); OPIATES URINE SCREEN Negative (Negative)
[2020-05-14 17:30] LABS: Tricyclic Antidepressants Negative (Negative)
[2020-05-15 15:41] LABS: Buprenorphine 107.7 ng/mL; Norbuprenorphine 561.4 ng/mL
[2020-05-20 13:29] LABS: Buprenorphine 598.2 ng/mL; Norbuprenorphine 1158.9 ng/mL
== END 2020-05-14 23:59 | disposition home or self-care (01) ==
LOC: INF 03:58
PROVIDERS: Advanced Practice Midwife; Obstetrics & Gynecology; PCP Family Medicine; Visit Provider Advanced Practice Midwife
DX: O99.012 Anemia complicating pregnancy, second trimester (principal); O99.013 Anemia complicating pregnancy, third trimester
CPT/HCPCS: 80307; 96365; 96374; J1756

== ENCOUNTER 2020-05-28 19:10 | Observation (INO) | payer MEDICAID, SELFPAY ==
[2020-05-28 21:26] LABS: ROM Plus Negative
== END 2020-05-28 21:45 | disposition home or self-care (01) ==
LOC: OBS 06-04 10:17
PROVIDERS: Admitting Provider Obstetrics & Gynecology Gynecology; PCP Family Medicine; Visit Provider Obstetrics & Gynecology
DX: O47.1 False labor at or after 37 completed weeks of gestation (principal); Z3A.38 38 weeks gestation of pregnancy
CPT/HCPCS: 84112

== ENCOUNTER 2020-06-04 18:00 | Outpatient (REF) | payer MEDICAID, SELFPAY ==
[2020-06-04 16:33] LABS: *AMPHETAMINES SCREEN URINE Negative (Negative); *BARBITURATES SCREEN URINE Negative (Negative); *BENZODIAZEPINES SCREEN URINE Negative (Negative); Cannabinoids THC Negative (Negative); Cocaine Screen,Urine Negative (Negative); METHADONE URINE SCREEN Negative (Negative); OPIATES URINE SCREEN Negative (Negative)
[2020-06-04 16:50] LABS: Tricyclic Antidepressants Negative (Negative)
[2020-06-08 12:15] LABS: Buprenorphine 625.8 ng/mL; Norbuprenorphine 1756.9 ng/mL
== END 2020-06-04 18:20 ==
LOC: LBN 18:00
PROVIDERS: PCP Family Medicine; Visit Provider Obstetrics & Gynecology
DX: F11.20 Opioid dependence, uncomplicated (principal); Z34.90 Encounter for supervision of normal pregnancy, unspecified, unspecified trimester
CPT/HCPCS: 80307

== ENCOUNTER 2020-06-05 22:10 | Observation (INO) | payer MEDICAID, SELFPAY ==
[2020-06-05 22:51] LABS: *AMPHETAMINES SCREEN URINE Negative (Negative); *BARBITURATES SCREEN URINE Negative (Negative); *BENZODIAZEPINES SCREEN URINE Negative (Negative); Cannabinoids THC Negative (Negative); Cocaine Screen,Urine Negative (Negative); METHADONE URINE SCREEN Negative (Negative); OPIATES URINE SCREEN Negative (Negative)
[2020-06-05 22:54] LABS: Tricyclic Antidepressants Negative (Negative)
== END 2020-06-05 23:20 | disposition home or self-care (01) ==
LOC: OBS 06-07 11:59
PROVIDERS: Admitting Provider Obstetrics & Gynecology; PCP Family Medicine; Visit Provider Obstetrics & Gynecology
DX: O47.1 False labor at or after 37 completed weeks of gestation (principal); O34.211 Maternal care for low transverse scar from previous cesarean delivery; Z3A.39 39 weeks gestation of pregnancy
CPT/HCPCS: 80307; G0378

== ENCOUNTER 2020-06-09 00:54 | Outpatient (CLI) | payer MEDICAID, SELFPAY ==
--- NOTE | 2020-06-09 07:00 | DI.US_ITS ---
EXAM: US OB KIRSTIE WEIGHT CLINICAL HISTORY: growth,SMALL FOR DATES,HEP C,Z34.93,Z87.898,O99.320 TECHNIQUE: Ultrasound performed using standard protocol. COMPARISON: US US OB KIRSTIE WEIGHT from 05/07/2020 FINDINGS: Ob ultrasound was performed utilizing 3rd trimester protocol. biometry is consistent with gest ational age of 36 weeks 6 days and EDC July 01. Estimated weight is 3060 grams which is at the 13th percentile for predicted gestational age. Placenta is posterior with no placenta previa. Fetus is in cephalic presentation. There is a normal quantity of amniotic fluid visually and the KIRSTIE is 16. heart rate is 137 BPM. IMPRESSION: DATA REPOSITORY:
== END 2020-06-09 01:14 ==
PROVIDERS: PCP Family Medicine; Visit Provider Obstetrics & Gynecology
DX: Z34.93 Encounter for supervision of normal pregnancy, unspecified, third trimester (principal); Z87.898 Personal history of other specified conditions; O36.5931 Maternal care for other known or suspected poor fetal growth, third trimester, fetus 1
CPT/HCPCS: 76816

== ENCOUNTER 2020-06-11 04:38 | Outpatient (RCR) | payer MEDICAID, SELFPAY ==
[2020-05-21 13:30] LABS: HCT 30.9 % (36.0-46.0); HGB 9.8 g/dL (11.2-15.7)
[2020-05-21] MEDS: IRON SUCROSE COMPLEX 200 MG in Normal Saline 100 ML 440 MG IVPB (14:21)
[2020-05-21] MEDS: Normal Saline Flush 10 ML SYR IVP (14:43)
[2020-05-28] MEDS: IRON SUCROSE COMPLEX 200 MG in Normal Saline 100 ML 440 MG IVPB (14:03)
[2020-05-28] MEDS: Normal Saline Flush 10 ML SYR IVP (14:03)
[2020-05-28 17:12] LABS: *AMPHETAMINES SCREEN URINE Negative (Negative); *BARBITURATES SCREEN URINE Negative (Negative); *BENZODIAZEPINES SCREEN URINE Negative (Negative); Cannabinoids THC Negative (Negative); Cocaine Screen,Urine Negative (Negative); METHADONE URINE SCREEN Negative (Negative); OPIATES URINE SCREEN Negative (Negative)
[2020-05-28 17:15] LABS: Tricyclic Antidepressants Negative (Negative)
[2020-06-02 16:35] LABS: Buprenorphine 269.2 ng/mL; Norbuprenorphine 983.4 ng/mL
[2020-06-04] MEDS: Normal Saline Flush 10 ML SYR IVP (13:15)
[2020-06-04 13:22] LABS: HCT 30.8 % (36.0-46.0); HGB 9.9 g/dL (11.2-15.7)
[2020-06-04] MEDS: IRON SUCROSE COMPLEX 200 MG in Normal Saline 100 ML 440 MG IVPB (13:39)
[2020-06-11] MEDS: IRON SUCROSE COMPLEX 200 MG in Normal Saline 100 ML 440 MG IVPB (13:23)
[2020-06-11] MEDS: Normal Saline Flush 10 ML SYR IVP (13:23)
== END 2020-06-14 23:59 | disposition home or self-care (01) ==
LOC: INF 04:38
PROVIDERS: Obstetrics & Gynecology; PCP Family Medicine; Visit Provider Advanced Practice Midwife
DX: O99.013 Anemia complicating pregnancy, third trimester (principal); D50.9 Iron deficiency anemia, unspecified
CPT/HCPCS: 36415; 80307; 96365; 85014; 85018; J1756

== ENCOUNTER 2020-06-14 14:07 | Observation (INO) | payer MEDICAID, SELFPAY | END 2020-06-14 14:11 | disposition home or self-care (01) | LOC: OBS 14:56 | PROVIDERS: Admitting Provider Obstetrics & Gynecology; PCP Family Medicine; Visit Provider Obstetrics & Gynecology | DX: O47.1 False labor at or after 37 completed weeks of gestation (principal); O34.211 Maternal care for low transverse scar from previous cesarean delivery; O99.820 Streptococcus B carrier state complicating pregnancy; Z3A.40 40 weeks gestation of pregnancy; O48.0 Post-term pregnancy | CPT/HCPCS: 59025; G0378 ==

== ENCOUNTER 2020-06-18 05:22 | Outpatient (RCR) | payer MEDICAID, SELFPAY | END 2020-07-14 23:59 | disposition home or self-care (01) | LOC: INF 05:22 | PROVIDERS: PCP Family Medicine; Visit Provider Advanced Practice Midwife | DX: Z53.9 Procedure and treatment not carried out, unspecified reason (principal) ==

== ENCOUNTER 2021-09-03 13:03 | Outpatient (REF) | payer MEDICAID, SELFPAY | END 2021-09-03 13:04 | disposition home or self-care (01) | LOC: NCHCN 13:03 | PROVIDERS: PCP Family Medicine; Visit Provider Physician Assistant Medical | DX: N39.0 Urinary tract infection, site not specified (principal) | CPT/HCPCS: 87077; 87086; 87186 ==

== ENCOUNTER 2022-01-25 20:33 | Outpatient (REF) | payer MEDICAID, SELFPAY ==
[2022-01-27 15:27] LABS: Chlamydia Result Negative (Negative); GC Result Negative (Negative)
== END 2022-01-25 20:34 | disposition home or self-care (01) ==
LOC: LBN 20:33
PROVIDERS: PCP Family Medicine; Visit Provider Physician Assistant Medical
DX: N89.8 Other specified noninflammatory disorders of vagina (principal)
CPT/HCPCS: 87491; 87591; 87480; 87510; 87660

== ENCOUNTER 2022-05-18 19:18 | Outpatient (REF) | payer MEDICAID, SELFPAY ==
[2022-05-18 21:23] LABS: Bacteria Moderate HPF (Negative); C & S Indicated? C&S Done As Ordered; Casts Negative LPF (Negative); Crystals Rare Calcium Oxalate HPF (Negative); Mucus Negative (Negative); RBC Negative HPF (0-2); WBC 0-2 HPF (0-5)
[2022-05-18 21:24] LABS: Epithelial Cells Moderate HPF (Negative)
[2022-05-20 15:44] LABS: Chlamydia Result Negative (Negative); GC Result Negative (Negative)
== END 2022-05-18 19:19 | disposition home or self-care (01) ==
LOC: LBN 19:18
PROVIDERS: Visit Provider Physician Assistant Medical
DX: R30.0 Dysuria (principal); N89.8 Other specified noninflammatory disorders of vagina
CPT/HCPCS: 87491; 87591; 81015; 87086; 87480; 87510; 87660

== ENCOUNTER 2022-06-29 17:16 | Outpatient (REF) | payer MEDICAID, SELFPAY ==
--- NOTE | 2022-06-29 17:30 | PAPFT_PTH ---
PATIENT: Grace Ornelas LOC: [facility]#:[id number] AGE/SX: 26/F ROOM: RE06/29/[address]: Kallie Hidalgo : 1995 BED: DIS: 06/29/2022 SPEC #: [id number] RECD: 06/30/22 12:42 STATUS: DAREN REQ #: [id number] HORTENSIA: 06/29/22 17:[address]: Kallie Hidalgo DEPT: [facility] Cytology RECD BY: Rachel Amador Tissues: 1 - CX/ENDOCX FOR PAP SMEARS Procedures: PAP THIN PREP/UVM Screening Comments: [id number]
[2022-06-29 19:28] LABS: INR 0.9 (0.9-1.1); Prothrombin Time 9.2 sec (9.3-11.0)
[2022-06-29 19:31] LABS: HGB 10.6 g/dL (11.2-15.7); MCH 18.7 pg (27.0-33.0); MCHC 30.3 % (32.0-36.0); MPV 10.7 fL (8.0-11.0); Platelet Count 279 10^3/uL (130-400); RBC 5.66 10^6/uL (3.93-5.22); RDW 14.2 % (11.7-14.6); RDW-SD 30.5 fL
[2022-06-29 19:53] LABS: MCV 62 fL (80-95)
[2022-06-29 20:22] LABS: ALT 62 U/L (14-59); AST 28 U/L (15-37); Albumin 4.2 g/dL (3.4-5.0); Alkaline Phosphatase 47 U/L (46-116); Anion Gap 6.9 mmol/L (3-11); BUN 9 mg/dL (7-18); Bilirubin, Total 0.4 mg/dL (0.2-1.0); CO2 28.1 mmol/L (21.0-32.0); CREATININE 0.5 mg/dL (0.55-1.02); Calcium 8.9 mg/dL (8.5-10.1); Chloride 104 mmol/L (98-107); Estimated GFR 131.75 (mL/min/1.73m2); Glucose 79 mg/dL (74-106); Potassium 3.9 mmol/L (3.5-5.1); Sodium 139 mmol/L (136-145); TSH (W/Ref FT4) 1.74 uIU/mL (0.36-3.74); Total Protein 7.3 g/dL (6.4-8.2)
[2022-07-03 09:55] LABS: Hepatitis C Ab w Rflx HCV PCR Reactive (Negative)
[2022-07-03 13:50] LABS: HCV RNA Detection Quantitative 557000 IU/mL (Undetected); HCV RNA Qualitative Detected (Undetected)
== END 2022-06-29 17:17 | disposition home or self-care (01) ==
LOC: NCHCN 17:16
PROVIDERS: Visit Provider Nurse Practitioner Family
DX: Z00.00 Encounter for general adult medical examination without abnormal findings (principal); Z01.419 Encounter for gynecological examination (general) (routine) without abnormal findings; B19.20 Unspecified viral hepatitis C without hepatic coma
CPT/HCPCS: 80053; 85027; 86803; 87522; 88142; 84443; 85610

== ENCOUNTER 2022-09-05 18:18 | Outpatient (REF) | payer MEDICAID, SELFPAY | END 2022-09-05 18:19 | disposition home or self-care (01) | LOC: LBN 18:18 | PROVIDERS: Visit Provider Nurse Practitioner Family | DX: N89.8 Other specified noninflammatory disorders of vagina (principal) | CPT/HCPCS: 87480; 87510; 87660 ==

== ENCOUNTER 2023-03-09 21:49 | Emergency (ER) | payer MEDICAID, SELFPAY ==
[2023-03-09 22:12] VITALS: BP 127/83; PULSE 95; RESP 16; TEMP 37; O2SAT 98
[2023-03-10 01:39] LABS: Bilirubin Negative (Negative); Blood Negative (Negative); Clarity Clear (Clear); Glucose Negative (Negative); Ketones Trace mg/dL (Negative); Leukocyte Esterase Negative (Negative); Nitrite Negative (Negative); Specific Gravity 1.025 (1.005-1.025); pH 5.5 (5-8)
[2023-03-10 01:51] LABS: *AMPHETAMINES SCREEN URINE Negative (Negative); *BARBITURATES SCREEN URINE Negative (Negative); *BENZODIAZEPINES SCREEN URINE Negative (Negative); Cannabinoids THC Negative (Negative); Cocaine Screen,Urine Positive (Negative); METHADONE URINE SCREEN Negative (Negative); OPIATES URINE SCREEN Negative (Negative)
[2023-03-10 01:55] LABS: Tricyclic Antidepressants Negative (Negative)
[2023-03-10 01:57] LABS: Abs Immature Grans 0.03 10^3/uL (0.0-0.06); Absolute Basophil Count 0.02 10^3/uL (0.0-0.2); Absolute Eosinophil Count 0.06 10^3/uL (0.0-0.7); Absolute Lymphocyte Count 2.55 10^3/uL (1.2-3.4); Absolute Monocyte Count 0.61 10^3/uL (0.1-0.8); Absolute Neutrophil Count 5.98 10^3/uL (1.2-6.7); Basophils % 0.2; Eosinophils % 0.6; HGB 11.5 g/dL (11.2-15.7); Immature Grans % 0.3; Lymphocytes % 27.6; MCH 18.7 pg (27.0-33.0); MCHC 30.3 % (32.0-36.0); MCV 62 fL (80-95); MPV 9.3 fL (8.0-11.0); Monocytes % 6.6; Neutrophils % 64.7; Platelet Count 372 10^3/uL (130-400); RBC 6.14 10^6/uL (3.93-5.22); RDW 14.7 % (11.7-14.6); RDW-SD 31.4 fL; WBC 9.25 10^3/uL (4.4-10.8)
[2023-03-10 02:12] LABS: Salicylate < 2.8 mg/dL (<2.8)
[2023-03-10 02:14] LABS: Acetaminophen < 2 ug/mL (10-30)
[2023-03-10 02:16] LABS: ALT 46 U/L (14-59); AST 23 U/L (15-37); Albumin 4.2 g/dL (3.4-5.0); Alkaline Phosphatase 69 U/L (46-116); Anion Gap 5.8 mmol/L (3-11); BUN 11 mg/dL (7-18); Bilirubin, Total 0.5 mg/dL (0.2-1.0); CO2 32.2 mmol/L (21.0-32.0); CREATININE 0.7 mg/dL (0.55-1.02); Calcium 9.2 mg/dL (8.5-10.1); Chloride 103 mmol/L (98-107); Estimated GFR 120.74 (mL/min/1.73m2); Glucose 56 mg/dL (74-106); Hypochromasia 1+; Microcytosis 1+; Potassium 3.7 mmol/L (3.5-5.1); Sodium 141 mmol/L (136-145); Total Protein 8.2 g/dL (6.4-8.2)
[2023-03-10 02:45] LABS: TSH (W/Ref FT4) 1.81 uIU/mL (0.36-3.74)
[2023-03-10 02:52] LABS: ETHANOL BLOOD < 3.0 mg/dL (<10)
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
[2023-03-10] MEDS: Sulfameth/Trimeth DS TAB 1 TAB PO (06:33)
--- NOTE | 2023-03-10 09:12 | W.EDPROG ---
Date of service: 03/10/23 Time of Service: 09:12 Medical Decision Making patient pending placement voluntary for depression/si. Calm and cooperative, no acute complaints, will continue to monitor until placement found Sign Out Sign Out Data: Sign Out Comment: Suicidal, depression, pending placement Last updated by Davion Quinones DO at 03/10/23 08:12 Discharge Plan Discharge Details Chief Complaint: PsychEval Clinical Impression: At risk for suicide, Paronychia of finger Primary Care Provider: Sharyn Gunderson V ED Provider: Ramez Ward [place] Meds and New Rx's Prescriptions: No Action Sublocade 300 mg/1.5 mL solution, extended rel syringe SUBCUT .MONTHLY Patient Comments: Inject once a month
--- NOTE | 2023-03-10 11:54 | NUR.NOTE ---
Nursing Note: SAMANTHA Khan; CPSO stated that [facility] stated outside of room 5 that she was voluntary and that they saw no reason why she could not use the phone. I relayed this to Dr. Ward and he stated he was waiting for the care plan.
--- NOTE | 2023-03-10 12:12 | NUR.NOTE ---
Nursing Note: Patient stated she wants her phone. I told her we needed to wait for a care plan per provider. She then stated that she wanted her clothes, phone and was going to leave. Dr. Ward notified. Spoke with [facility] Patrizia and she stated that she was not aware of our policy of no phone calls unless it was to [facility] or a lot technician prior to a care plan. He is currently speaking with [facility]. They are going to return to re-evaluate the patient.
--- NOTE | 2023-03-10 12:19 | NUR.NOTE ---
pt threatening to leave due to not being allowed to have cell phone. MD Ward aware and [facility] has been called. awaiting [facility] to come and speak with pt
--- NOTE | 2023-03-10 12:35 | NUR.NOTE ---
pt beginning to yell I want my things, I'm going to leave. pt yelling at staff when staff goes in room to try and calm patient. pt has been told she will not get her stuff back until cleared by [facility]. MD Ward at bedside.
--- NOTE | 2023-03-10 12:42 | ED.PROG_ITS ---
Date of service: 03/10/23 Time of Service: 12:42 Medical Decision Making patient became upset because she wasn't allowed to use her cell phone, advised per standard care plan we can't allow them to use their phones. She then stated she wanted to leave. Advised [facility] was coming in to speak with her again but she declined to stay, was here voluntarily, when I ask her about her si she states her thoughts were due to her drug relapse and denies current si. I requested again that she stay for her to speak with [facility] again but she declined to stay. Given she is clinically sober and now denying si and is not exhibiting any paranoid or manic behaviors do not feel she meets criteria for EE status. She left the ED before I could print discharge paperwork for her, I did verbally tell her I sent a prescription to cassie in [facility] for bactrim for her finger paronychia, she was instructed to follow up with [facility] and [facility] was made aware as well and will follow up with the pt Sign Out Sign Out Data: Sign Out Comment: Suicidal, depression, pending placement Last updated by Davion Quinones DO at 03/10/23 08:12 Discharge Plan Disposition Patient Disposition: Eloped Condition: Stable Discharge Details Clinical Impression: Paronychia of finger, Depression Primary Care Provider: Sharyn Gunderson V ED Provider: Ramez Ward Home Meds and New Rx's Prescriptions: New sulfamethoxazole-trimethoprim [Bactrim DS] 800-160 mg tablet 1 tab PO BID Qty: 14 0RF No Action Sublocade 300 mg/1.5 mL solution, extended rel syringe SUBCUT .MONTHLY Patient Comments: Inject once a month
--- NOTE | 2023-03-10 12:49 | NUR.NOTE ---
pts belongings returned to pt, pt signed an AMA form and aware of all the risks associated with leaving.
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
== END 2023-03-10 12:50 | disposition left against medical advice (07) ==
PROVIDERS: Nurse Practitioner Acute Care; Student in an Organized Health Care Education/Training Program; Emergency Provider Emergency Medicine; PCP Family Medicine
DX: F15.90 Other stimulant use, unspecified, uncomplicated (principal); R45.851 Suicidal ideations; L03.011 Cellulitis of right finger; Z53.21 Procedure and treatment not carried out due to patient leaving prior to being seen by health care provider
CPT/HCPCS: 80053; 80307; 81025; 99285; 80320; 80329; 81003; 84443; 85025

== ENCOUNTER 2023-07-21 12:18 | Emergency (ER) | payer MEDICAID, SELFPAY ==
[2023-07-21 12:22] VITALS: BP 145/98; PULSE 92; RESP 18; TEMP 36.7; O2SAT 97
--- OUTSIDE RECORDS SUMMARY | 2023-07-21 12:25 | XMS_ITS | Continuity of Care Document ---
Author Name Unknown Organization [facility] Ambulatory Clinics Address [address] [place] [address] Encounter [facility] NBR [id number] Date(s): 07/17/22 - 07/17/22 [facility] Ambulatory Clinics [address] [place], [place] [address]
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
[2023-07-21] MEDS: Cephalexin 500 MG CAP PO (12:45)
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
== END 2023-07-21 14:28 | disposition home or self-care (01) ==
PROVIDERS: Emergency Provider Nurse Practitioner Family; PCP Family Medicine
DX: L03.012 Cellulitis of left finger (principal); L03.032 Cellulitis of left toe; F32.A Depression, unspecified; F11.10 Opioid abuse, uncomplicated; F41.9 Anxiety disorder, unspecified
CPT/HCPCS: 99283; 99284

== ENCOUNTER 2023-07-22 18:43 | Emergency (ER) | payer MEDICAID, SELFPAY ==
[2023-07-22 18:49] VITALS: BP 129/84; PULSE 110; RESP 18; TEMP 37.3; O2SAT 98
[2023-07-22 19:25] VITALS: BP 200/100; PULSE 110; RESP 18; RESP 220; TEMP 36.6; O2SAT 99
[2023-07-22 20:54] VITALS: BP 142/94; PULSE 100; RESP 12; O2SAT 99
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
== END 2023-07-22 20:52 | disposition home or self-care (01) ==
PROVIDERS: Emergency Provider Physician Assistant; PCP Family Medicine
DX: F19.20 Other psychoactive substance dependence, uncomplicated (principal); Z59.819 Housing instability, housed unspecified
CPT/HCPCS: 99283